=== PATIENT | female | born 1965 | race Two or more races ===

== ENCOUNTER 2018-06-24 05:50 | Day surgery (SDC) | payer OTHER ==
[~2018-06-24 05:50] MED LIST: ANALPRAM HC 2.530 GM RC; FLONASE16 GM NS; MELATONIN1 MG PO; MULTI-DAY1 TAB PO; NEURONTIN300 MG PO; POLY119PG; PROGESTERONE50 MG/M1 IM; RECTICARE30 GM TP
== END 2018-06-24 10:40 | disposition home or self-care (01) ==
LOC: AMB-ENDOS 05:50
DX: K62.89 Other specified diseases of anus and rectum (principal)